=== PATIENT | female | born 2005 | race Two or more races ===

== ENCOUNTER 2025-03-02 11:55 | Day surgery (SDC) | payer MEDICAID, SELFPAY ==
[2025-03-01 07:44] VITALS: BMI 20.3
[2025-03-01 09:06] LABS: Basophils # (Auto) 0.1 Thou/mm3 (0.0-0.2); Basophils % (Auto) 1 % (0-2.5); Eosinophils # (Auto) 0.5 Thou/mm3 (0.0-0.5); Eosinophils % (Auto) 6 % (0-10); Hematocrit 35.2 % (36.0-46.0); Hemoglobin 12.2 g/dL (12.0-16.0); Immature Granulocytes Auto 0.02 Thou/mm3 (0.00-0.00); Lymphocytes # (Auto) 3.0 Thou/mm3 (1.0-4.8); Lymphocytes % (Auto) 39 % (10-50); Mean Corpuscular HGB Conc 34.7 g/dl (31.0-37.0); Mean Corpuscular Hemoglobin 30.3 pg (25.0-35.0); Mean Corpuscular Volume 87 fL (80-100); Monocytes # (Auto) 0.6 Thou/mm3 (0.0-0.8); Monocytes % (Auto) 8 % (0-12); Neutrophils # (Auto) 3.5 Thou/mm3 (1.8-7.7); Neutrophils % (Auto) 46 % (37-80); Nucleated Red Blood Cell # 0.00 Thou/mm3 (0.00-0.00); Nucleated Red Blood Cell % 0 /100 WBC (0); Platelet Count 285 Thou/mm3 (140-440); RDW Standard Deviation 41.4 fL (36.4-46.3); Red Blood Count 4.03 Miln/mm3 (4.00-5.20); White Blood Count 7.6 Thou/mm3 (3.6-11.0)
[2025-03-01 09:13] LABS: Anion Gap 10 (7-16); BUN/Creatinine Ratio 11 Ratio (12-20); Blood Urea Nitrogen 10 mg/dL (9-23); Calcium 9.3 mg/dL (8.3-10.6); Carbon Dioxide 25.9 mMol/L (20.0-31.0); Chloride 106 mMol/L (98-107); Creatinine (Component) 0.9 mg/dL (0.6-1.3); Estimated Creatinine Clearance 80.7 mL/min (>60); Glucose 85 mg/dL (74-106); Osmolality,Calculated 281 (275-295); Potassium 3.6 mMol/L (3.4-5.1); Sodium 142 mMol/L (136-145); eGFR > 60 See Note
[2025-03-01 09:28] LABS: HCG,Qualitative Serum Negative
[2025-03-02] VITALS (7 sets, daily range): BP systolic 85–98; BP diastolic 52–62; PULSE 74–83; RESP 14–20; TEMP 36.2–37; O2SAT 98–100; BMI 19.7
[2025-03-02] MEDS: RINGERS LACTATED 1000 ML 1,000 ML 20 ML IV (12:20)
--- NOTE | 2025-03-02 13:12 | ESOP_ITS ---
Date of Procedure 03/02/25 Pre Op Diagnosis Right upper thigh mass Post Op Diagnosis Right upper thigh mass Procedure Excision of skin and subcutaneous soft tissue of right upper thigh Findings Induration of skin and underlying soft tissue mass of right upper thigh, Procedure Description Patient brought into the operating room in supine position. After administration of general tracheal anesthesia, patient's right upper thigh prepped and draped in standard surgical manner. After administration of local anesthesia an approximately 4 cm elliptical incision was made encompassing the induration of right upper thigh skin. Dissection was deepened into soft tissue. The skin along with underlying soft tissue was excised circumferentially until healthy appearing skin and underlying soft tissue encountered. The wound was washed and irrigated and hemostasis achieved using electrocautery. Subcutaneous tissue closed with interrupted sutures using 2-0 Vicryl and the incision was closed with 4 Monocryl in subcuticular fashion. Dermabond applied. Patient tolerated procedure well. She was extubated, breathing spontaneously and witho ut difficulty and was transferred to postanesthesia care in stable condition. Instruments, needles and sponge counts were reported to be correct x 2. Anesthesia GETA and local Pathology / specimen Other (Right upper thigh mass) Estimated Blood Loss 5 Condition Stable Disposition PACU Surgeon Jose Evans MD Surgical Staff Operation Date: 03/02/25 14:15 Case Staff LIN[employer] K[employer]EL ENGINEER: Malcolm Guillory RN First Assistant: Ravi Ontiveros
--- NOTE | 2025-03-02 13:15 | SUR.PHASEI ---
1315: Pt. arrived with oral airway in place, vitals stable, breathing unlabored, no signs of distress, dressing to right inner thigh CDI, no active bleed noted, report recieved from Abel BOLAÑOS and Cy LAI.
--- NOTE | 2025-03-02 14:00 | SUR.PHASEII ---
1400: Pt. AAOx4, vitals stable, breathing unlabored, no complaint of pain or nausea, dressing to right inner thigh CDI, no active bleed noted, pt. tolerated sips of soda well, pt. ambulated to wheelchair with steady gait and no assist, no complications. Gave discharge instructions to the pt. and her ride, both verbalized understanding and had no further questions. Pt. left with all personal belongings.
== END 2025-03-02 14:00 | disposition home or self-care (01) ==
PROVIDERS: PCP Family Medicine; Referring Provider Surgery; Visit Provider Surgery
PROC: (CPT 11406; principal; 2025-03-02 14:00)
DX: L72.0 Epidermal cyst (principal)
CPT/HCPCS: 11406; 36415; 80048; 84703; 85025; A4217; A4649; J1100; J2405; J2704; J3010; J3490; J7120